=== PATIENT | female | born 1950 | race Two or more races ===

== ENCOUNTER 2021-02-03 10:54 | Emergency (ER) | payer OTHER ==
[~2021-02-03] VITALS: Ht 152.4 cm; Wt 81.2 kg
[~2021-02-03 10:54] MED LIST: SINGULAIR4 MG; TUSSI PRES-B L120 M1 PO; ZITHROMAX TRI-500 MG PO
[2021-02-03] MEDS ORDERED: IBU800 MG PO (18:19)
== END 2021-02-03 18:55 | disposition home or self-care (01) ==
LOC: ER 10:54
DX: S40.012A Contusion of left shoulder, initial encounter (principal); S20.213A Contusion of bilateral front wall of thorax, initial encounter; S60.212A Contusion of left wrist, initial encounter; S50.12XA Contusion of left forearm, initial encounter; W10.8XXA Fall (on) (from) other stairs and steps, initial encounter; Y93.89 Activity, other specified; Y92.89 Other specified places as the place of occurrence of the external cause; Y99.8 Other external cause status; B34.9 Viral infection, unspecified

== ENCOUNTER 2021-07-29 08:30 | Emergency (ER) | payer OTHER ==
[~2021-07-29] VITALS: Ht 152.4 cm; Wt 81.6 kg
[~2021-07-29 08:30] MED LIST changes: +IBU800 MG PO
[2021-07-29] MEDS ORDERED: NAMENDA1 EACH PO (08:38)
[2021-07-29] MEDS ORDERED: VITAMIN D-40010 MCG PO (08:39)
[2021-07-29] MEDS ORDERED: KETO10TA2 PO (10:29)
== END 2021-07-29 10:33 | disposition home or self-care (01) ==
LOC: ER 08:30
DX: S90.02XA Contusion of left ankle, initial encounter (principal); W10.8XXA Fall (on) (from) other stairs and steps, initial encounter; Y92.019 Unspecified place in single-family (private) house as the place of occurrence of the external cause; G30.9 Alzheimer's disease, unspecified; F02.80 Dementia in other diseases classified elsewhere, unspecified severity, without behavioral disturbance, psychotic disturbance, mood disturbance, and anxiety; Z91.013 Allergy to seafood; J45.909 Unspecified asthma, uncomplicated

== ENCOUNTER 2022-03-01 10:13 | Emergency (ER) | payer OTHER ==
[~2022-03-01] VITALS: Ht 152.4 cm; Wt 85.3 kg
[~2022-03-01 10:13] MED LIST changes: +KETO10TA2 PO; +NAMENDA1 EACH PO; +VITAMIN D-40010 MCG PO
[2022-03-01] MEDS ORDERED: METHOTREXATE2.5 MG PO (10:55)
[2022-03-01] MEDS ORDERED: XARELTO20 M1 PO (10:55)
[2022-03-01] MEDS ORDERED: DICLOFENAC SOD100 GM TP (10:56)
[2022-03-01] MEDS ORDERED: TRELEGY ELLIPT1 EACH IH (10:56)
== END 2022-03-01 12:45 | disposition home or self-care (01) ==
LOC: ER 10:13
DX: S23.41XA Sprain of ribs, initial encounter (principal); X58.XXXA Exposure to other specified factors, initial encounter; Y93.9 Activity, unspecified; Y92.9 Unspecified place or not applicable; Y99.9 Unspecified external cause status; Z91.013 Allergy to seafood

== ENCOUNTER 2022-05-31 09:41 | Emergency (ER) | payer OTHER ==
[~2022-05-31] VITALS: Ht 152.4 cm; Wt 76.2 kg
[~2022-05-31 09:41] MED LIST changes: +DICLOFENAC SOD100 GM TP; +METHOTREXATE2.5 MG PO; +TRELEGY ELLIPT1 EACH IH; +XARELTO20 M1 PO
== END 2022-05-31 18:08 | disposition home or self-care (01) ==
LOC: ER 09:41
DX: J45.901 Unspecified asthma with (acute) exacerbation (principal); Z91.013 Allergy to seafood; I10 Essential (primary) hypertension; Z20.822 Contact with and (suspected) exposure to COVID-19

== ENCOUNTER 2022-06-13 08:49 | Emergency (ER) | payer OTHER ==
[~2022-06-13] VITALS: Ht 152.4 cm; Wt 84.4 kg
[2022-06-13] MEDS ORDERED: ZITHROMAX200 MG PO (10:46)
[2022-06-13] MEDS ORDERED: DIABETIC SILTU118 M1 PO (10:46)
== END 2022-06-13 10:49 | disposition home or self-care (01) ==
LOC: ER 08:49
DX: B34.9 Viral infection, unspecified (principal); Z91.013 Allergy to seafood; M19.91 Primary osteoarthritis, unspecified site; Z20.822 Contact with and (suspected) exposure to COVID-19

== ENCOUNTER 2023-05-01 07:15 | Emergency (ER) | payer OTHER ==
[~2023-05-01] VITALS: Ht 157.5 cm; Wt 73.5 kg
[~2023-05-01 07:15] MED LIST changes: +DIABETIC SILTU118 M1 PO; +ZITHROMAX200 MG PO
[2023-05-01] MEDS ORDERED: SINGULAIR10 MG (07:45)
[2023-05-01 09:27] LABS: HEMATOCRIT 42.8 % (36.0-45.00); MEAN CELL VOLUME 91.5 fL (80.00-100.00); MEAN CORPUSCULAR HGB CONC 32.8 g/dl (32.0-36.0); PLATELET COUNT 179 K/uL (150-450); RED BLOOD COUNT 4.67 M/uL (4.00-6.00); RED CELL DISTRIBUTION WIDTH 14.7 % (11.5-14.5)
== END 2023-05-01 11:28 | disposition home or self-care (01) ==
LOC: ER 07:15
PROVIDERS: General Practice
DX: J45.998 Other asthma (principal); Z20.822 Contact with and (suspected) exposure to COVID-19; E11.9 Type 2 diabetes mellitus without complications; Z79.84 Long term (current) use of oral hypoglycemic drugs; I10 Essential (primary) hypertension; Z91.013 Allergy to seafood
CPT/HCPCS: 36415; 71046; 93005; 94640; 96365; 99284; J2930

== ENCOUNTER 2023-07-23 08:09 | Emergency (ER) | payer OTHER ==
[~2023-07-23] VITALS: Ht 152.4 cm; Wt 80.3 kg
[~2023-07-23 08:09] MED LIST changes: +SINGULAIR10 MG
[2023-07-23] MEDS ORDERED: LOSARTAN POTAS100 MG PO (08:25)
[2023-07-23] MEDS ORDERED: INVOKANA300 MG (08:27)
[2023-07-23] MEDS ORDERED: MULTAQ400 MG PO (08:27)
[2023-07-23] MEDS ORDERED: ROSUVASTATIN CA10 MG PO (08:28)
[2023-07-23] MEDS ORDERED: 0.9 % SODIUM CHLORIDE 1,000 ML IV STA (09:11)
[2023-07-23] MEDS ORDERED: FAMOTIDINE/PF 20 MG/2 ML VIAL IV ONE (09:15)
[2023-07-23 09:57] LABS: HEMATOCRIT 41.6 % (36.0-45.00); HEMOGLOBIN 13.7 g/dL (12.0-15.00); MEAN CELL VOLUME 90.5 fL (80.00-100.00); MEAN CORPUSCULAR HEMOGLOBIN 29.9 pg (27.00-32.0); PLATELET COUNT 159 K/uL (150-450); RED BLOOD COUNT 4.59 M/uL (4.00-6.00); RED CELL DISTRIBUTION WIDTH 14.9 % (11.5-14.5)
[2023-07-23 09:59] LABS: URINE APPEARANCE Clear; URINE BILIRRUBIN Negative (NEGATIVE); URINE BLOOD Trace; URINE COLOR Yellow; URINE LEUKOCYTE Trace; URINE NITRATE Negative; URINE PROTEIN Trace (NEGATIVE); URINE UROBILINOGEN 0.2 E.U./dl
[2023-07-23 10:05] LABS: URINE BACTERIA 245.6 uL (0.0-1933); URINE EPITHELIAL CELLS 34.4 uL (0.0-38.8); URINE RBC 6.1 uL (0.0-20.8); URINE WBC 22.4 uL (0.0-23.2)
[2023-07-23 10:28] LABS: ALBUMIN 3.8 gm/dL (3.4-5.0); BILIRUBIN TOTAL 0.33 mg/dL (0.3-1.2); CALCIUM 9.9 mg/dL (8.5-10.1); CREATININE SERUM 0.86 mg/dL (0.55-1.02); GFR 64.32; GLOBULINA 3.9 G/DL (2.4-3.5); POTASSIUM 4.43 mEq/L (3.5-5.1); TOTAL PROTEIN 7.7 gm/dL (6.4-8.2)
[2023-07-23 10:30] LABS: URINE GLUCOSE 100 MG/DL (NEGATIVE)
[2023-07-23 10:32] LABS: INR 0.97; PROTHROMBIN TIME 10.2 SECONDS (9.0-11.5)
[2023-07-23] MEDS ORDERED: KETOROLAC TROMETHAMINE 30 MG VIAL IV ONE (11:30)
== END 2023-07-23 14:57 | disposition home or self-care (01) ==
LOC: ER 08:09
PROVIDERS: Emergency Medicine
DX: R10.13 Epigastric pain (principal); Z91.013 Allergy to seafood; I48.91 Unspecified atrial fibrillation; Z20.822 Contact with and (suspected) exposure to COVID-19
CPT/HCPCS: 36415; 76700; 93005; 96365; 96366; 99284; J1885; J3490; J7030

== ENCOUNTER 2023-08-01 07:48 | Inpatient (IN) | payer OTHER ==
[~2023-08-01] VITALS: Ht 152.4 cm; Wt 79.8 kg
[~2023-08-01 07:48] MED LIST changes: +INVOKANA300 MG; +LOSARTAN POTAS100 MG PO; +MULTAQ400 MG PO; +ROSUVASTATIN CA10 MG PO
[2023-08-01] MEDS ORDERED: LEVALBUTEROL HCL 1.25 MG/3 ML SOLUTION IH SCH ×2 (08:30→21:00)
[2023-08-01] MEDS ORDERED: METHYLPREDNISOLONE SOD SUCC 125 MG VIAL IV ONE (08:30)
[2023-08-01] MEDS ORDERED: IPRATROPIUM BROMIDE 0.5 MG/2.5 ML AMPUL.NEB IH SCH ×2 (08:30→18:00)
[2023-08-01 09:02] LABS: HEMATOCRIT 39.7 % (36.0-45.00); HEMOGLOBIN 13.1 g/dL (12.0-15.00); MEAN CELL VOLUME 89.7 fL (80.00-100.00); MEAN CORPUSCULAR HEMOGLOBIN 29.6 pg (27.00-32.0); MEAN CORPUSCULAR HGB CONC 33.1 g/dl (32.0-36.0); PLATELET COUNT 145 K/uL (150-450); RED BLOOD COUNT 4.43 M/uL (4.00-6.00); RED CELL DISTRIBUTION WIDTH 14.7 % (11.5-14.5)
[2023-08-01] MEDS ORDERED: MAGNESIUM SULFATE IN WATER 2 GM/50 ML PIGGYBAG IV ONE (09:15)
[2023-08-01 09:21] LABS: INR 1.03; PARTIAL THROMBOPLASTIN TIME 27.9 SECONDS (22.0-34.0); PROTHROMBIN TIME 10.8 SECONDS (9.0-11.5)
[2023-08-01 09:27] LABS: ALBUMIN 3.5 gm/dL (3.4-5.0); BILIRUBIN TOTAL 0.44 mg/dL (0.3-1.2); CALCIUM 9.3 mg/dL (8.5-10.1); CREATININE SERUM 0.94 mg/dL (0.55-1.02); GFR 58.05; GLOBULINA 4.2 G/DL (2.4-3.5); POTASSIUM 4.14 mEq/L (3.5-5.1); TOTAL PROTEIN 7.7 gm/dL (6.4-8.2)
[2023-08-01] MEDS ORDERED: FUROsemide 20 MG/2 ML VIAL IV ONE (09:30)
[2023-08-01] MEDS ORDERED: DILTIAZEM HCL 25 MG/5 ML VIAL IV ONE (09:30)
[2023-08-01] MEDS ORDERED: CIPROFLOXACIN IN 5 % DEXTROSE 400 MG/200 ML PIGGYBAG IV ONE (11:30)
[2023-08-01 14:25] LABS: ABG PO2 70.4 mmHg (80-100); ABG pCO2 33.5 mmHg (35-45); BASE EXCESS -2.3 mmol/l; BICARBONATE 21.3 mmol/l (23-25); SaO2 94.1 %; Tco2 22.3 mmol/l; allen test SATISFACTORY; o2 21 %; puncture site RADIAL LEFT
[2023-08-01] MEDS ORDERED: INSULIN LISPRO 1,000 UNIT/10 ML UNITS SUBCUTANEO PRN (18:00)
[2023-08-01] MEDS ORDERED: DEXTROSE 50 % IN WATER 0.5 G/ML DISP.SYRIN IV PRN (18:00)
[2023-08-01] MEDS ORDERED: AZITHROMYCIN 500 MG in 0.9 % SODIUM CHLORIDE 250 ML IV SCH (18:14)
[2023-08-01] MEDS ORDERED: DILTIAZEM HCL 125 MG in 0.9 % SODIUM CHLORIDE 125 ML IV SCH (18:15)
[2023-08-01] MEDS ORDERED: ONDANSETRON HCL 4 MG in 0.9 % SODIUM CHLORIDE 50 ML IV PRN (18:15)
[2023-08-01] MEDS ORDERED: ACETAMINOPHEN 500 MG GEL..CAP PO PRN (18:15)
[2023-08-01] MEDS ORDERED: MORPHINE SULFATE 2 MG/ML CARTRIDGE IV PRN (18:15)
[2023-08-01] MEDS ORDERED: MEMANTINE HCL 5 MG TABLET PO SCH (18:18)
[2023-08-01 19:32] LABS: CKMB 1.4 NG/ML (0.5-3.6)
[2023-08-01] MEDS ORDERED: FAMOTIDINE/PF 20 MG in 0.9 % SODIUM CHLORIDE 8 ML IV PUSH SCH (21:00)
[2023-08-02] MEDS ORDERED: METHYLPREDNISOLONE SOD SUCC 40 MG VIAL IV SCH ×2 (01:00→17:00)
[2023-08-02 07:46] LABS: CKMB 1.6 NG/ML (0.5-3.6)
[2023-08-02 07:48] LABS: ALBUMIN 3.4 gm/dL (3.4-5.0); ALKALINE PHOSPHATASE 110 U/L (50-136); ALT/SGPT 20 U/L (12-78); ANION GAP 6 (10.0-20.0); AST/SGOT 18 U/L (15-37); BILIRUBIN TOTAL 0.27 mg/dL (0.3-1.2); BILIRUBIN,CONJUGATED < 0.10 mg/dL (0.0-0.2); BILIRUBIN,UNCONJUGATED 0.17 mg/dL (0.0-0.6); BLOOD UREA NITROGEN 21 mg/dL (7-18); BUN CREA RATIO 24 (7.0-25.0); CALCIUM 9.6 mg/dL (8.5-10.1); CARBON DIOXIDE 26 mEq/L (21-32); CHLORIDE 108 mmol/L (98-107); CHOL HDL RATIO 2.3 (0-5.0); CHOLESTEROL 142 mg/dL (0-200); CREATININE SERUM 0.86 mg/dL (0.55-1.02); GFR 64.32; GLOBULINA 3.4 G/DL (2.4-3.5); GLUCOSE FASTING 165 mg/dL (65-100); HDL 62 mg/dl (40-60); LDL 67 mg/dl (0-130); LIPASE 27 U/L (13-75); OSMOLALITY SERUM 279 MOSM/KG (275-295); POTASSIUM 4.29 mEq/L (3.5-5.1); SODIUM 136 mmol/L (136-145); TOTAL PROTEIN 6.8 gm/dL (6.4-8.2); TRIGLYCERIDES 66 mg/dL (0-150); VLDL 13 (0-39)
[2023-08-02 08:27] LABS: C-REACTIVE PROTEIN 4.68 MG/DL (0.00-0.29)
[2023-08-02 08:42] LABS: INR 0.97; PARTIAL THROMBOPLASTIN TIME 27.6 SECONDS (22.0-34.0); PROTHROMBIN TIME 10.2 SECONDS (9.0-11.5)
[2023-08-02] MEDS ORDERED: PATIENTS OWN MEDICATION (MEDICAMENTO EN PISO) PO SCH ×2 (09:00)
[2023-08-02] MEDS ORDERED: LORATADINE 10 MG TABLET PO SCH (09:00)
[2023-08-02] MEDS ORDERED: RIVAROXABAN 20 MG TABLET PO SCH (09:00)
[2023-08-02] MEDS ORDERED: CEFTRIAXONE SODIUM 2,000 MG in 0.9 % SODIUM CHLORIDE 100 ML IV SCH (09:00)
[2023-08-02] MEDS ORDERED: FUROsemide 20 MG/2 ML VIAL IV SCH (09:00)
[2023-08-02] MEDS ORDERED: ATORVASTATIN CALCIUM 40 MG TABLET PO SCH (09:00)
[2023-08-02] MEDS ORDERED: LOSARTAN POTASSIUM 100 MG TABLET PO SCH (09:00)
[2023-08-02 09:15] LABS: HEMATOCRIT 37.9 % (36.0-45.00); HEMOGLOBIN 12.5 g/dL (12.0-15.00); MEAN CELL VOLUME 91.6 fL (80.00-100.00); MEAN CORPUSCULAR HEMOGLOBIN 30.2 pg (27.00-32.0); RED BLOOD COUNT 4.14 M/uL (4.00-6.00); RED CELL DISTRIBUTION WIDTH 14.5 % (11.5-14.5)
[2023-08-02] MEDS ORDERED: BENZONATATE 100 MG CAPSULE PO SCH (09:23)
[2023-08-02 09:24] LABS: PLATELET COUNT 108 K/uL (150-450)
[2023-08-02] MEDS ORDERED: GUAIFENESIN/DEXTROMETHORPHAN 100 MG/5 ML ML PO PRN (09:30)
[2023-08-02 10:00] LABS: ERYTHROCYTE SEDIMENTATION RATE 71 mm/hr
[2023-08-02] MEDS ORDERED: INSULIN NPH HUMAN ISOPHANE 1,000 UNITS/10 ML UNITS SUBCUTANEO STA (12:41)
[2023-08-02] MEDS ORDERED: MONTELUKAST SODIUM 10 MG TABLET PO SCH (17:00)
[2023-08-03] MEDS ORDERED: INSULIN NPH HUMAN ISOPHANE 1,000 UNITS/10 ML UNITS SUBCUTANEO SCH (08:00)
[2023-08-03] MEDS ORDERED: BUDESONIDE 0.5 MG/2 ML AMPUL.NEB IH SCH (09:00)
[2023-08-03] MEDS ORDERED: SODIUM CL 0.9% 100 ML IV.SOLN IV ONE (14:00)
[2023-08-03 15:24] LABS: PH,URINE 5.5 (5.0-8.0); URINE APPEARANCE Clear; URINE BILIRRUBIN Negative (NEGATIVE); URINE BLOOD Negative; URINE COLOR Yellow; URINE LEUKOCYTE Negative; URINE NITRATE Negative; URINE PROTEIN Negative (NEGATIVE); URINE UROBILINOGEN 0.2 E.U./dl
[2023-08-03 15:28] LABS: URINE BACTERIA 37.8 uL (0.0-1933); URINE RBC 3.8 uL (0.0-20.8)
[2023-08-03 15:30] LABS: URINE GLUCOSE >=1000 MG/DL (NEGATIVE)
[2023-08-04 01:12] LABS: MYCOPLASMA PNEUMONIAE IGM NON REACTIVE (NO REACTIVE)
[2023-08-04] MEDS ORDERED: DILTIAZEM HCL 125MG/25ML VIAL IV ONE (14:06)
[2023-08-04] MEDS ORDERED: FAMOtidine 20 MG TABLET PO SCH (21:00)
[2023-08-05 05:14] LABS: HEMATOCRIT 33.9 % (36.0-45.00); MEAN CELL VOLUME 90.8 fL (80.00-100.00); MEAN CORPUSCULAR HGB CONC 33.5 g/dl (32.0-36.0); PLATELET COUNT 156 K/uL (150-450); RED BLOOD COUNT 3.73 M/uL (4.00-6.00); RED CELL DISTRIBUTION WIDTH 14.6 % (11.5-14.5)
[2023-08-05 05:20] LABS: HEMOGLOBIN 11.3 g/dL (12.0-15.00); MEAN CORPUSCULAR HEMOGLOBIN 30.2 pg (27.00-32.0)
[2023-08-05 05:31] LABS: ALBUMIN 2.9 gm/dL (3.4-5.0); BILIRUBIN TOTAL 0.27 mg/dL (0.3-1.2); CALCIUM 9.5 mg/dL (8.5-10.1); CREATININE SERUM 0.84 mg/dL (0.55-1.02); GFR 66.1; GLOBULINA 3.3 G/DL (2.4-3.5); POTASSIUM 4.89 mEq/L (3.5-5.1); TOTAL PROTEIN 6.2 gm/dL (6.4-8.2)
[2023-08-05] MEDS ORDERED: INSULIN NPH HUMAN ISOPHANE 1,000 UNITS/10 ML UNITS SUBCUTANEO SCH (08:00)
[2023-08-05] MEDS ORDERED: INSULIN LISPRO 1,000 UNIT/10 ML UNITS SUBCUTANEO SCH (08:00)
[2023-08-05] MEDS ORDERED: METOPROLOL TARTRATE 25 MG TABLET PO SCH (11:08)
[2023-08-06] MEDS ORDERED: SODIUM CL 0.9% 100 ML IV.SOLN IV ONE (07:45)
[2023-08-06] MEDS ORDERED: INSULIN NPH HUM/REG INSULIN HM 1,000 UNIT/10 ML UNITS SUBCUTANEO SCH (08:00)
[2023-08-06] MEDS ORDERED: METHYLPREDNISOLONE SOD SUCC 40 MG VIAL IV SCH (21:00)
[2023-08-07] MEDS ORDERED: METOPROLOL TARTRATE 25 MG TABLET PO SCH (09:00)
[2023-08-07] MEDS ORDERED: METOPROLOL TARTRATE 50 MG TABLET PO SCH (17:00)
[2023-08-08] MEDS ORDERED: INSULIN NPH HUM/REG INSULIN HM 1,000 UNIT/10 ML UNITS SUBCUTANEO SCH (08:00)
[2023-08-08] MEDS ORDERED: METHYLPREDNISOLONE SOD SUCC 40 MG VIAL IV SCH (09:00)
[2023-08-08] MEDS ORDERED: METOPROLOL TARTRATE 50 MG TABLET PO SCH (17:00)
[2023-08-08] MEDS ORDERED: METOPROLOL TARTRATE 50 MG,METOPROLOL TARTRATE 25 MG PO SCH (17:00)
[2023-08-08] MEDS ORDERED: CEFTRIAXONE SODIUM 2,000 MG VIAL ONE (23:59)
[2023-08-09 07:06] LABS: CALCIUM 9.4 mg/dL (8.5-10.1); CREATININE SERUM 0.87 mg/dL (0.55-1.02); GFR 63.47; POTASSIUM 4.75 mEq/L (3.5-5.1)
[2023-08-09 07:38] LABS: HEMATOCRIT 39.8 % (36.0-45.00); HEMOGLOBIN 13.2 g/dL (12.0-15.00); MEAN CELL VOLUME 91.3 fL (80.00-100.00); MEAN CORPUSCULAR HEMOGLOBIN 30.3 pg (27.00-32.0); MEAN CORPUSCULAR HGB CONC 33.2 g/dl (32.0-36.0); PLATELET COUNT 206 K/uL (150-450); RED BLOOD COUNT 4.36 M/uL (4.00-6.00); RED CELL DISTRIBUTION WIDTH 14.1 % (11.5-14.5)
[2023-08-09] MEDS ORDERED: LEVALBUTEROL HCL 1.25 MG/3 ML SOLUTION IH SCH (12:00)
== END 2023-08-09 22:24 | disposition home or self-care (01) | DRG 193 ==
LOC: ER 07:48 → MEDI 18:48
PROVIDERS: General Practice; Internal Medicine Infectious Disease; Specialist; ADMIT Internal Medicine; ATTEND Internal Medicine
PROC: 4A12X4Z Monitoring of Cardiac Electrical Activity, External Approach (ICD-10-PCS; principal; 2023-08-01)
PROC: BW24ZZZ Computerized Tomography (CT Scan) of Chest and Abdomen (ICD-10-PCS; 2023-08-01)
PROC: B24BZZZ Ultrasonography of Heart with Aorta (ICD-10-PCS; 2023-08-02)
DX: J18.9 Pneumonia, unspecified organism (principal); A41.9 Sepsis, unspecified organism; J45.901 Unspecified asthma with (acute) exacerbation; I48.20 Chronic atrial fibrillation, unspecified; I50.30 Unspecified diastolic (congestive) heart failure; E11.65 Type 2 diabetes mellitus with hyperglycemia; Z79.4 Long term (current) use of insulin; J44.9 Chronic obstructive pulmonary disease, unspecified; Z20.822 Contact with and (suspected) exposure to COVID-19; I11.0 Hypertensive heart disease with heart failure

== ENCOUNTER 2023-08-21 12:41 | Emergency (ER) | payer OTHER ==
[~2023-08-21] VITALS: Ht 152.4 cm; Wt 77.6 kg
[~2023-08-21 12:41] MED LIST changes: +METOPROLOL SUCC25 MG PO; +METOPROLOL SUCC50 MG PO
[2023-08-21] MEDS ORDERED: TETANUS & DIPHTHERIA TOX,ADULT 0.5 ML VIAL IM ONE (13:30)
[2023-08-21 16:02] LABS: HEMATOCRIT 38.5 % (36.0-45.00); HEMOGLOBIN 12.7 g/dL (12.0-15.00); MEAN CELL VOLUME 90.2 fL (80.00-100.00); MEAN CORPUSCULAR HEMOGLOBIN 29.7 pg (27.00-32.0); MEAN CORPUSCULAR HGB CONC 32.9 g/dl (32.0-36.0); RED BLOOD COUNT 4.26 M/uL (4.00-6.00); RED CELL DISTRIBUTION WIDTH 15.1 % (11.5-14.5)
[2023-08-21 16:04] LABS: PLATELET COUNT 120 K/uL (150-450)
[2023-08-21 16:09] LABS: CALCIUM 10.1 mg/dL (8.5-10.1); CREATININE SERUM 1.04 mg/dL (0.55-1.02); GFR 51.66; POTASSIUM 3.66 mEq/L (3.5-5.1)
[2023-08-21 16:18] LABS: INR 1.53
[2023-08-21 16:22] LABS: PROTHROMBIN TIME 15.6 SECONDS (9.0-11.5)
[2023-08-21] MEDS ORDERED: BUTALB/ACETAMINOPHEN/CAFFEINE 1 TAB TABLET PO ONE (17:30)
[2023-08-21] MEDS ORDERED: DEXAMETHASONE SODIUM PHOSPHATE 4 MG/ML VIAL IM ONE (17:45)
[2023-08-21] MEDS ORDERED: SODIUM CHLORIDE 0.45 % 1,000 ML IV SCH (17:45)
== END 2023-08-21 20:36 | disposition designated cancer center or children's hospital (05) ==
LOC: ER 12:41
PROVIDERS: Emergency Medicine
DX: S06.5XAA Traumatic subdural hemorrhage with loss of consciousness status unknown, initial encounter (principal); S09.8XXA Other specified injuries of head, initial encounter; W19.XXXA Unspecified fall, initial encounter; Y93.89 Activity, other specified; Y92.89 Other specified places as the place of occurrence of the external cause; Y99.8 Other external cause status; M12.569 Traumatic arthropathy, unspecified knee; I10 Essential (primary) hypertension; E11.9 Type 2 diabetes mellitus without complications; Z91.013 Allergy to seafood
CPT/HCPCS: 36415; 70450; 72125; 73560; 96372; 99284; J1100

== ENCOUNTER 2024-03-13 08:00 | Emergency (ER) | payer OTHER ==
[~2024-03-13] VITALS: Ht 152.4 cm; Wt 78.0 kg
[2024-03-13] MEDS ORDERED: LEVALBUTEROL HCL 1.25 MG/3 ML SOLUTION IH SCH (10:00)
[2024-03-13] MEDS ORDERED: METHYLPREDNISOLONE SOD SUCC 125 MG VIAL IV ONE (10:00)
[2024-03-13] MEDS ORDERED: IPRATROPIUM BROMIDE 0.5 MG/2.5 ML AMPUL.NEB IH SCH (10:00)
[2024-03-13 10:29] LABS: HEMATOCRIT 37.4 % (36.0-45.00); HEMOGLOBIN 12.2 g/dL (12.0-15.00); MEAN CELL VOLUME 84.4 fL (80.00-100.00); MEAN CORPUSCULAR HEMOGLOBIN 27.5 pg (27.00-32.0); MEAN CORPUSCULAR HGB CONC 32.5 g/dl (32.0-36.0); PLATELET COUNT 203 K/uL (150-450); RED BLOOD COUNT 4.43 M/uL (4.00-6.00)
[2024-03-13 10:30] LABS: RED CELL DISTRIBUTION WIDTH 18.3 % (11.5-14.5)
[2024-03-13] MEDS ORDERED: BENZONATATE 100 MG CAPSULE PO ONE (12:00)
[2024-03-13 12:51] LABS: ABG PH 7.396 (7.35-7.45); ABG PO2 98.8 mmHg (80-100); SaO2 97.5 %
[2024-03-13 12:52] LABS: BASE EXCESS -5.4 mmol/l; Tco2 18.9 mmol/l; allen test SATISFACTORY; o2 21 %; puncture site RADIAL RIGHT
== END 2024-03-13 12:23 | disposition home or self-care (01) ==
LOC: ER 08:01
PROVIDERS: General Practice
DX: J45.901 Unspecified asthma with (acute) exacerbation (principal); Z91.013 Allergy to seafood; I50.9 Heart failure, unspecified; I48.91 Unspecified atrial fibrillation; M06.8A Other specified rheumatoid arthritis, other specified site; Z20.822 Contact with and (suspected) exposure to COVID-19
CPT/HCPCS: 71046; 82803; 94640; 96365; 99284; J3490

== ENCOUNTER 2024-10-07 07:58 | Emergency (ER) | payer OTHER ==
[~2024-10-07] VITALS: Ht 162.6 cm; Wt 78.0 kg
[2024-10-07] MEDS ORDERED: GUAIFENESIN 200 MG/10 ML BLIST.PACK PO STA (08:44)
[2024-10-07] MEDS ORDERED: CEFTRIAXONE SODIUM 1,000 MG VIAL IM STA (08:44)
[2024-10-07 10:13] LABS: HEMATOCRIT 37.3 % (36.0-45.00); MEAN CORPUSCULAR HEMOGLOBIN 27.3 pg (27.00-32.0); MEAN CORPUSCULAR HGB CONC 32.2 g/dl (32.0-36.0); PLATELET COUNT 172 K/uL (150-450); RED BLOOD COUNT 4.39 M/uL (4.00-6.00); RED CELL DISTRIBUTION WIDTH 16.3 % (11.5-14.5)
== END 2024-10-07 10:42 | disposition home or self-care (01) ==
LOC: ER 07:59
PROVIDERS: General Practice
DX: J06.9 Acute upper respiratory infection, unspecified (principal); Z91.013 Allergy to seafood

== ENCOUNTER 2024-10-18 08:06 | Emergency (ER) | payer OTHER ==
[~2024-10-18] VITALS: Ht 152.4 cm; Wt 78.0 kg
[2024-10-18] MEDS ORDERED: IPRATROPIUM BROMIDE 0.5 MG/2.5 ML AMPUL.NEB IH ONE ×2 (09:15→11:05)
[2024-10-18] MEDS ORDERED: ACETAMINOPHEN 500 MG GEL..CAP PO ONE ×2 (09:15→09:19)
[2024-10-18] MEDS ORDERED: BENZONATATE 100 MG CAPSULE PO ONE (09:15)
[2024-10-18 10:15] LABS: BASO % 0.8 % (0.1-1.2); EOS # 0.14 (0.04-0.54); EOS % 2.1 % (0.7-7.0); HEMATOCRIT 36.9 % (34.1-44.9); HEMOGLOBIN 11.6 g/dL (11.2-15.7); LYMPH # 1.71 (1.18-3.74); LYMPH % 26.2 % (19.3-53.1); MEAN CORPUSCULAR HEMOGLOBIN 27.1 pg (25.6-32.2); MONO # 0.48 (0.24-0.82); MONO % 7.4 % (4.7-12.5); NEUT # 4.13 (1.56-6.13); NEUT % 63.2 % (34.0-71.1); PLATELET COUNT 227 K/uL (163-369); RED BLOOD COUNT 4.28 M/uL (3.93-5.22); RED CELL DISTRIBUTION WIDTH 16.3 % (11.6-14.4)
[2024-10-18 10:51] LABS: COVID-19 AG NEGATIVE (NEGATIVE)
[2024-10-18 10:52] LABS: INFLUENZA A AG NEGATIVE (NEGATIVE)
[2024-10-18 10:55] LABS: ALBUMIN 3.5 gm/dL (3.4-5.0); BILIRUBIN TOTAL 0.46 mg/dL (0.3-1.2); CREATININE SERUM 1.14 mg/dL (0.55-1.02); GFR 46.34; GLOBULINA 4.4 G/DL (2.4-3.5); POTASSIUM 4.23 mEq/L (3.5-5.1); TOTAL PROTEIN 7.9 gm/dL (6.4-8.2)
[2024-10-18 11:55] LABS: ABG PH 7.402 (7.35-7.45); ABG PO2 77.2 mmHg (80-100); ABG pCO2 36.2 mmHg (35-45); BASE EXCESS -2.2 mmol/l; SaO2 95.2 %; Tco2 23.1 mmol/l; allen test SATISFACTORY; mode ROOM AIR; o2 21 %; puncture site RADIAL RIGHT
[2024-10-18] MEDS ORDERED: BENZONATATE200 M1 PO (13:10)
[2024-10-18] MEDS ORDERED: TUSSIN MUC100 MG/5 M PO (13:10)
[2024-10-18] MEDS ORDERED: KETOROLAC TROMETHAMINE 60 MG VIAL IM ONE ×2 (13:24→13:30)
[2024-10-18] MEDS ORDERED: ORPHENADRINE CITRATE 30 MG/ML AMPUL ONE (13:24)
[2024-10-18] MEDS ORDERED: ORPHENADRINE CITRATE 30 MG/ML AMPUL IM ONE (13:30)
== END 2024-10-18 13:39 | disposition home or self-care (01) ==
LOC: ER 08:11
PROVIDERS: General Practice
DX: J98.8 Other specified respiratory disorders (principal); J98.01 Acute bronchospasm; R05.9 Cough, unspecified; Z20.822 Contact with and (suspected) exposure to COVID-19; I10 Essential (primary) hypertension; E11.9 Type 2 diabetes mellitus without complications; Z91.013 Allergy to seafood

== ENCOUNTER 2025-05-05 07:37 | Emergency (ER) | payer OTHER ==
[~2025-05-05] VITALS: Ht 152.4 cm; Wt 78.0 kg
[~2025-05-05 07:37] MED LIST changes: +BENZONATATE200 M1 PO; +TUSSIN MUC100 MG/5 M PO
[2025-05-05] MEDS ORDERED: FOLIC ACID0.8 M1 (08:15)
[2025-05-05] MEDS ORDERED: METHOTREXA25 MG/1 M5 IJ (08:16)
[2025-05-05] MEDS ORDERED: LIDOCAINE HCL VISCOUS 20MG/ML BLIST 15ML MM ONE (08:45)
[2025-05-05] MEDS ORDERED: LEVALBUTEROL HCL 0.63 MG/3 ML SOLUTION IH SCH (08:45)
[2025-05-05] MEDS ORDERED: LORATADINE 10 MG TABLET PO ONE (08:45)
[2025-05-05 11:06] LABS: COVID-19 AG NEGATIVE (NEGATIVE)
== END 2025-05-05 12:01 | disposition home or self-care (01) ==
LOC: ER 07:38
PROVIDERS: Emergency Medicine
DX: J06.9 Acute upper respiratory infection, unspecified (principal); R05.8 Other specified cough; R07.89 Other chest pain; J45.909 Unspecified asthma, uncomplicated; R10.9 Unspecified abdominal pain; Z20.822 Contact with and (suspected) exposure to COVID-19; E11.9 Type 2 diabetes mellitus without complications; Z91.013 Allergy to seafood

== ENCOUNTER → 2025-06-05 | Emergency (ER) | payer OTHER ==
[~2025-06-05] VITALS: Ht 152.4 cm; Wt 77.1 kg
[~2025-06-05] MED LIST changes: +0.9 % SODIUM CHLORIDE 1,000 ML IV ONE; +BENZONATATE 100 MG CAPSULE PO ONE; +BENZONATATE100 MG PO; +FOLIC ACID0.8 M1; +IPRATROPIUM BROMIDE 0.5 MG/2.5 ML AMPUL.NEB IH ONE; +LEVALBUTER1.25 MG/0. IH; +LEVALBUTEROL HCL 1.25 MG/3 ML SOLUTION IH SCH; +MEDROLPACK PO; +METHOTREXA25 MG/1 M5 IJ; +METHYLPREDNISOLONE SOD SUCC 125 MG VIAL IV ONE
[2025-06-05 13:18] VITALS: BP 121/73; O2SAT 99
[2025-06-05 18:44] LABS: BASO % 0.5 % (0.1-1.2); EOS # 0.19 (0.04-0.54); EOS % 2.9 % (0.7-7.0); LYMPH # 1.86 (1.18-3.74); LYMPH % 28.4 % (19.3-53.1); MEAN PLATELET VOLUME 12.40 fl (9.4-12.4); MONO # 0.69 (0.24-0.82); MONO % 10.5 % (4.7-12.5); NEUT # 3.78 (1.56-6.13); NEUT % 57.5 % (34.0-71.1); RED CELL DISTRIBUTION WIDTH 17.2 % (11.6-14.4)
[2025-06-05 19:02] LABS: ERYTHROCYTE SEDIMENTATION RATE 23 mm/hr (0-30)
[2025-06-05 19:16] LABS: COVID-19 AG NEGATIVE (NEGATIVE)
[2025-06-05 19:30] LABS: ALT/SGPT 20.0 U/L (12-78); AST/SGOT 20.0 U/L (15-37); BILIRUBIN TOTAL 0.3 mg/dL (0.3-1.2); BUN CREA RATIO 15.0 (7.0-25.0); CREATININE SERUM 1.17 mg/dL (0.55-1.02); GFR 44.85; GLOBULINA 3.9 G/DL (2.4-3.5); GLUCOSE FASTING 151.0 mg/dL (65-100); OSMOLALITY SERUM 293.0 MOSM/KG (275-295)
== END | disposition home or self-care (01) ==
LOC: ER 11:55
DX: J45.41 Moderate persistent asthma with (acute) exacerbation (principal); Z20.822 Contact with and (suspected) exposure to COVID-19; E11.9 Type 2 diabetes mellitus without complications; Z79.84 Long term (current) use of oral hypoglycemic drugs; I10 Essential (primary) hypertension; Z91.013 Allergy to seafood; I48.91 Unspecified atrial fibrillation
CPT/HCPCS: 36415; 71046; 82803; 94640; 96365; 99283; J7030